=== PATIENT | male | born 1970 | race Caucasian/White ===

== ENCOUNTER → 2020-01-26 | Outpatient (CLI) | payer OTHER ==
--- NOTE | 2020-01-26 11:35 | Diagnostic Imaging Report ---
Abdomen one view AP INDICATION: ^[id number] ^[id number] ^FOREIGN BODY ABDOMINAL WALL Comparison: None available. Discussion: There is a linear density projecting over the left lower quadrant measuring approximately 3 cm in total length overlying the anterior abdominal wall. Bowel loops are nondilated. No acute osseous abnormality. Moderate multilevel degenerative changes of the spine are noted. IMPRESSION: Linear 3 cm hyperdense foreign body projecting over the anterior left lower quadrant. Signed by: Oneil Mead MD on 01/26/2020 11:31 AM
== END ==
LOC: RAD 10:24
PROVIDERS: ATTEND Surgery
DX: S30.851A Superficial foreign body of abdominal wall, initial encounter (principal)
CPT/HCPCS: 74019

== ENCOUNTER → 2020-11-15 | Outpatient (CLI) | payer OTHER | LOC: RAD 13:34 | PROVIDERS: ATTEND Surgery | DX: T19.8XXA Foreign body in other parts of genitourinary tract, initial encounter (principal) | CPT/HCPCS: 74019 ==